=== PATIENT | male | born 1965 | race Caucasian/White ===

== ENCOUNTER 2020-11-19 10:02 | Outpatient (CLI) | payer BC, SELFPAY ==
--- NOTE | ~2020-11-19 | XR_ITS ---
XR lumbar spine 2-3V DATE: 11/19/2020 10:22 INDICATION: Back pain TECHNIQUE: AP, lateral, coned lateral lumbosacral views COMPARISON: None FINDINGS: There is minimal levoscoliosis of the lumbar spine. Bridging osteophytes are noted at T12-L1 and L1-L2. There is moderate degenerative disc disease at th e lumbar interspaces and moderately severe degenerative disease at L5-S1. There is a transitional first sacral vertebra. No fracture or bone destruction. The lumbar pedicles are intact. The sacroiliac joints are normal. IMPRESSION: Extensive degenerative changes of lower thoracic and lumbar spine Transitional lumbosacral vertebra Reviewed, dictated and finalized at location A. HER INSTRUMENTAL
--- NOTE | ~2020-11-19 | XR_ITS ---
XR hip RT min 2V DATE: 11/19/2020 10:22 INDICATION: Right hip pain for 5+ years TECHNIQUE: AP and lateral and crosstable lateral views COMPARISON: None FINDINGS: There is very severe right hip osteoarthritis with severe joint space narrowing and very pr ominent hypertrophic degenerative spurring. There is closely apposing hypertrophic spurring of the ac etabulum and femoral head. There is lateral subluxation at the hip joint. There is mild flattening deformity and patchy sclerotic and lucent changes of the right femoral head consistent with probable avascular necrosis. No fracture or dislocation or bone destruction is noted otherwise. Normal alignment at the pubic symphysis and right sacroiliac joint. 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
== END 2020-11-19 10:03 | disposition home or self-care (01) ==
LOC: ANHIMG 10:08
PROVIDERS: PCP Internal Medicine; Visit Provider Clinical Nurse Specialist
DX: M25.559 Pain in unspecified hip (principal); M51.34 Other intervertebral disc degeneration, thoracic region; M51.36 Other intervertebral disc degeneration, lumbar region
CPT/HCPCS: 72100; 73502

== ENCOUNTER 2020-12-22 07:42 | Outpatient (CLI) | payer BC, SELFPAY ==
--- NOTE | 2020-12-22 08:38 | ECG_ITS ---
Measurements Intervals [place] Rate: 67 P: 52 MS: 188 QRS: 34 QRSD: 90 T: 35 QT: 380 QTc: 402 Interpretive Statements SINUS RHYTHM POSSIBLE LEFT ATRIAL ENLARGEMENT BORDERLINE R WAVE PROGRESSION, ANTERIOR LEADS BASELINE ARTIFACT- II, III, AVF BORDERLINE ECG Electronically Signed On 12-28-2020 19:54:11 CDT by Jose Maria D.O.
[2020-12-22 09:32] LABS: Albumin Level 4.8 g/dL (3.5-5.1); Urine Cotinine NEGATIVE
[2020-12-22 09:36] LABS: Hemoglobin A1C 4.6 % (<5.7)
== END 2020-12-22 07:43 | disposition home or self-care (01) ==
LOC: ANHSURGERY 07:45
PROVIDERS: PCP Internal Medicine; Visit Provider Orthopaedic Surgery
DX: Z01.818 Encounter for other preprocedural examination (principal); M16.11 Unilateral primary osteoarthritis, right hip; R00.0 Tachycardia, unspecified; I48.92 Unspecified atrial flutter
CPT/HCPCS: 80307; 82040; 83036; 86850; 86900; 86901; 87081; 93005

== ENCOUNTER 2020-12-30 09:06 | Outpatient (CLI) | payer BC, SELFPAY ==
--- NOTE | 2020-12-28 | ECG_ITS ---
Measurements Intervals [place] Rate: 84 P: 43 RI: 128 QRS: 53 QRSD: 96 T: 49 QT: 361 QTc: 429 Interpretive Statements SINUS RHYTHM BASELINE WANDER- V2-V3, V6 NORMAL ECG Electronically Signed On 12-31-2020 11:20:01 CDT by Jose Maria D.O.
--- NOTE | ~2020-12-30 | NM_ITS ---
EXAMINATION: NM kulwinder stress w perfusion DATE: 12/30/2020 13:12 INDICATION: Dyspnea on exertion. TECHNIQUE: Rest images were obtained following intravenous administration of 9.4 mCi Tc99m tetrofosmi n (Myoview). The patient was infused intravenously with Lexiscan (regadenoson). Then, 28.3 mCi Tc99m tetrofosmin (Myoview) was administered intravenously, and stress images were obtained. Data was recon structed into short axis and horizontal and vertical long axis SPECT images. Gated SPECT images were also obtained. COMPARISON: None. FINDINGS: There is no definite reversible or fixed perfusion abnormality to suggest ischemia or infar ction. There is no segmental wall motion abnormality. Left ventricular ejection fraction measures 7 0%. IMPRESSION: 1. No definite ischemia or infarct. 2. Normal left ventricular ejection fraction measuring 70%. Reviewed, dictated and finalized at location A.
--- NOTE | 2020-12-30 09:37 | EST_ITS ---
Patient Info Name: Satish Marcelo Age: 55 years : 1965 Gender: Male Ht: 77 in Wt: 280 lbs BSA: 2.66 m2 Exam Date: 12/30/2020 11:32 AM Exam Location: [facility] Stress Patient Status: Outpatient Admit Date: 12/30/2020 Staff Ordering Physician: Jose Maria DO Attending Provider: Jose aMria DO Exercise Technologist: Sheyla Nelson CT Exercise Physician: Jose Maria DO Exam Type: CA stress kulwinder w NM Study Info Indications Z01.818 - Encounter for other preprocedural examination A regadenoson stress test was performed. Summary 1. 1. Negative lexiscan stress test for ischemic ST changes by ECG criteria. 2. 2. Baseline hypertension. 3. 3. Nuclear scan to follow and will be reported separately. Please correlate with it. 4. 4. Patient informed of the above results. Protocol: Lexiscan Stress ECG Details Stage: REST Duration (min): 21 min : 45 sec HR (bpm): 82 SBP (mmHg): 162 DBP (mmHg): 86 Stage: STAGE 1 Duration (min): 0 min : 38 sec HR (bpm): 81 SBP (mmHg): 162 DBP (mmHg): 86 Stage: STAGE 1 Duration (min): 1 min : 0 sec HR (bpm): 93 SBP (mmHg): 169 DBP (mmHg): 102 Stage: RECOVERY Duration (min): 1 min : 0 sec HR (bpm): 92 SBP (mmHg): 169 DBP (mmHg): 102 Stage: RECOVERY Duration (min): 2 min : 0 sec HR (bpm): 88 SBP (mmHg): 169 DBP (mmHg): 102 Stage: RECOVERY Duration (min): 2 min : 29 sec HR (bpm): 89 SBP (mmHg): 176 DBP (mmHg): 98 Rest HR: 82 bpm Peak HR: 98 bpm Rest Sys BP: 162 mmHg Peak Sys BP: 176 mmHg Max Pred HR: 163 bpm % Max Pred HR: 60 % Target HR: 139 bpm Max RPP: 17,248 bpm*mmHg Termination Reason: Completed protocol Cardiac Symptoms: Headache Total Time: 1 min : 0 sec Rest [place] BP: 86 mmHg Peak [place] BP: 98 mmHg Total Dose: 0.4 mg Resting ECG Sinus rhythm. Stress ECG No ST changes. Arrhythmias None. Report Signatures
--- NOTE | 2020-12-30 09:37 | ECHO_ITS ---
Patient Info Name: Satish Marcelo Age: 55 years : 1965 Gender: Male Ht: 77 in Wt: 280 lbs BSA: 2.66 m2 HR: 48 bpm BP: 162 / 90 mmHg Heart Rhythm: Sinus Rhythm Exam Date: 12/30/2020 9:41 AM Exam Location: [facility] Pulmonary Patient Status: Outpatient Admit Date: 12/30/2020 Staff Ordering Physician: Jose Maria DO Parts Remover: Marylu Gerard RDCS Attending Provider: Jose Maria DO Referring Physician: Crow MCCRARY; Exam Type: CA echo dop color flow w con Study Info Indications R06.00 - Dyspnea, unspecified Complete two-dimensional, color flow and Doppler transthoracic echocardiogram is performed. Summary 1. Complete two-dimensional, color flow and Doppler transthoracic echocardiogram is performed. 2. Left ventricular chamber dimension is normal. 3. Left ventricular systolic function is normal, estimated at 60-65%. 4. The left ventricular diastolic function is grade I diastolic dysfunction. 5. E/e' 8 is minimally elevated. 6. Left atrial chamber dimension is mildly enlarged. Left Ventricle E/e' 8 is minimally elevated. Left ventricular chamber dimension is normal. Left ventricular systolic function is normal, estimated at 60-65%. The left ventricular diastolic function is grade I diastolic dysfunction. Right Ventricle Right ventricular chamber dimension is normal. Right ventricular systolic function is normal. Left Atria Left atrial chamber dimension is mildly enlarged. Right Atria Right atrial chamber dimension is normal. Aortic Valve The aortic valve is trileaflet. There is no aortic valve stenosis. There is no aortic valve regurgitation. Pulmonic Valve There is no pulmonic regurgitation. Mitral Valve There is no mitral valve stenosis. There is no mitral valve regurgitation. Tricuspid Valve There is no tricuspid valve regurgitation. Pericardium/Pleural There is no pericardial effusion. Inferior Vena Cava Normal inferior vena cava with >50% collapse upon inspiration consistent with normal right atrial pressure, 5 mmHg. Aorta The aortic root size at the sinus of Valsalva is normal. Left Ventricular Outflow Tract Name Value Normal LVOT 2D LVOT Diameter 2.47 cm LVOT Doppler LVOT Peak Gradient 4 mmHg LVOT Mean Gradient 2 mmHg LVOT VTI 21.57 cm LVOT VTI/AV VTI Ratio 0.81 LVOT Stroke Volume 103.12 ml LVOT CO 8.09 l/min LVOT CI 3.04 L/min/m2 Pulmonic Valve Name Value Normal RVOT Doppler RVOT Peak Gradient 3 mmHg PV Doppler PV Peak Gradient 4 mmHg Mitral Valve
== END 2020-12-30 09:07 | disposition home or self-care (01) ==
PROVIDERS: PCP Internal Medicine; Visit Provider Internal Medicine Cardiovascular Disease
DX: Z01.810 Encounter for preprocedural cardiovascular examination (principal); R06.00 Dyspnea, unspecified; I48.91 Unspecified atrial fibrillation; I48.92 Unspecified atrial flutter
CPT/HCPCS: 78452; 93017; 93306; A9502

== ENCOUNTER → 2021-01-01 00:50 | Outpatient (CLI) | payer BC, SELFPAY ==
[2021-01-01 19:49] LABS: SARS-CoV-2 RNA PCR Negative
== END ==
PROVIDERS: PCP Internal Medicine; Visit Provider Orthopaedic Surgery
DX: Z01.812 Encounter for preprocedural laboratory examination (principal); Z20.822 Contact with and (suspected) exposure to COVID-19
CPT/HCPCS: C9803; U0003; U0005

== ENCOUNTER 2021-01-04 01:18 | Day surgery (SDC) | payer BC, SELFPAY ==
[2020-12-22 08:02] VITALS: BMI 33.5
[2021-01-04] VITALS (13 sets, daily range): BP systolic 130–157; BP diastolic 67–96; PULSE 85–103; RESP 12–18; TEMP 36–36.6; O2SAT 93–100
--- NOTE | ~2021-01-04 | XR_ITS ---
EXAMINATION: XR surgery orthopedic EXAM DATE: 01/04/2021 12:08 INDICATION: Anterior approach right hip arthroplasty. TECHNIQUE: Fluoroscopy used during right hip arthroplasty performed by Dr. Darwin Clemons MD. Rad iologist was not present for the imaging or procedure. Total fluoroscopic time of 0.3 minutes. A tot al of 1 images obtained for the exam. The DAP for this procedure was 0.14 mGym2. FINDINGS: Frontal image demonstrates right hip arthroplasty hardware in expected position. Correlat e with procedure note. IMPRESSION: Fluoroscopy used during right hip arthroplasty. Reviewed, dictated and finalized at location A.
--- NOTE | ~2021-01-04 | XR_ITS ---
EXAMINATION: XR hip RT min 2V DATE: 01/04/2021 12:43 INDICATION: Total right hip arthroplasty. Postop. TECHNIQUE: 2 views of right hip were obtained. COMPARISON: Right hip radiographs 12/09/2020 FINDINGS: There is a total right hip arthroplasty in near-anatomic alignment. No fracture. There is g as in the soft tissues, consistent with recent surgery. IMPRESSION: 1. Total right hip arthroplasty in near-anatomic alignment. Reviewed, dictated and finalized at location A.
[2021-01-04] MEDS: LACTATED RINGERS 1,000 ML 30 ML IV CONT ×2 (06:45→12:35)
[2021-01-04] MEDS: TRANEXAMIC ACID 1,000MG/ISO100 1,000 MG/100 ML BAG 200 MG IVPB (06:46)
[2021-01-04] MEDS: ACETAMINOPHEN 500 MG TABLET 1000 MG PO ×3 (06:46→23:49)
--- NOTE | 2021-01-04 06:50 | WPDANESEPPF ---
Anes - Initial Pre Proc Eval Procedure: Operation Date: 01/04/21 07:30 Proposed Procedures p Right Total Hip Arthroplasty, Anterior Approach - Darwin Clemons MD Date/Time: 01/04/21 06:50 Surgeon: Darwin Clemons MD Pre Op Diagnosis: OA, Right Hip Patient Data Age: 55 Gender: M Height: 6 ft 5 in Weight: 128.1 kg Allergies Allergy/AdvReac Type Severity Reaction Status Date / Time No Known Allergies Allergy Verified 12/23/20 10:38 Home Medications Medication Instructions Recorded Confirmed Type atorvastatin 10 mg tablet 10 mg PO QHS #90 tablet 12/09/20 12/24/20 Rx fluoxetine 40 mg capsule 40 mg PO BID 12/09/20 12/24/20 History lorazepam 1 mg tablet 1 mg PO DAILY PRN tablet 12/09/20 12/24/20 History geriatric multivitamin-min 1 tablet PO DAILY 12/22/20 12/24/20 History [Multiple Vitamins 55 Plus] zuqowssszpw-B0-Lvkoyxqks serr 1 tablet PO DAILY 12/22/20 12/24/20 History [Glucosamine Daily Complex] losartan 50 mg PO QAM 12/22/20 12/24/20 History omega-3 fatty acids [Fish Oil] 2,400 mg PO DAILY 12/22/20 12/24/20 History aspirin 325 mg tablet,delayed 325 mg PO DAILY 12/24/20 12/24/20 History release rivaroxaban 10 mg tablet 10 mg PO DAILY #14 tablet 12/24/20 Rx Patient hx anesthesia problems: none Family hx anesthesia problems: none PMFSH Past Medical History Medical History (Updated 01/04/21 @ 06:50 by Chase Baez MD) Abnormal EKG Anxiety HTN (hypertension) Obesity Surgical History Surgical History History of colonoscopy Family History Family History Sibling Asthma Depression Anxiety Thyroid condition Father Heart disease Afib Social History Social History Smoking status: Never smoker Alcohol intake: current Drinks per week: 10 Substance use: never Living arrangements: alone Gender identity (if verbalized by the patient): Male Spiritual care concerns: No Anes - Eval Final PreProcedure Day of Procedure 01/04/21 06:50 Patient weight: obese Heart: regular rate and rhythm Lungs: clear to auscultation Airway: Mallampati scale class II Neurological: alert and oriented Last oral intake: >/= 8 hours ASA classification: III Emergent: no Anesthetic plan: proceed Anesthesia type and monitoring: general ETT and standard monitoring Informed Consent: The patient's anesthetic plan and its attendant risks and benefits were discussed with the patient/family/POA. Questions were solicited and answers provided to the satisfaction of the patient/family/POA.
--- NOTE | 2021-01-04 07:10 | WPDHPUPDATE1 ---
History and Physical Update Update Date/Time: 01/04/21 07:10 History and Physical has been reviewed, including an updated exam of the patient. There are NO changes in the patient's condition. Risks, benefits, and alternatives have been discussed and questions answered. Patient agrees to proceed with procedure.
[2021-01-04] MEDS: ceFAZolin 3 GM/D5W 100 ML 100 ML IVPB (07:55)
[2021-01-04] MEDS: BUPIVACAINE/EPINEPHRINE 0.25% 50 ML VIAL INFILTRATE (08:55)
[2021-01-04] MEDS: TRANEXAMIC ACID 1,000 MG/10 ML AMPUL 1000 MG TOPICAL (08:57)
[2021-01-04] MEDS: ceFAZolin SODIUM 1 GM VIAL IV PUSH (12:06)
--- NOTE | 2021-01-04 12:28 | PM.PROC ---
Procedure Note - Detailed Date of procedure: 01/04/21 Pre-op diagnosis: OA, Right Hip Post-op diagnosis: same Procedure performed: Right total hip replacement -anterior approach Description of procedure: The patient was identified, proper side identified, and then taken to the operating room. After a spinal anesthetic was administered, he was then transferred over to the [place] table positioning supine in the usual manner for an anterior hip procedure. Positioning was assessed fluoroscopically after which the right hip and thigh was prepped and draped in the usual sterile fashion. 10 cc of the arthroplasty solution was injected into the subcutaneous tissue over the TFL muscle belly. Longitudinal incision was made over the muscle belly. Subcutaneous tissue was sharply dissected down to the TFL fascia which was incised in line with the fibers the TFL. The TFL was retracted laterally and the rectus femoris medially. The rectus fascia was divided. The branches of the anterior femoral circumflex artery were identified and cauterized allowing for access to the hip capsule. Pericapsular fatty tissue was removed. The capsule was divided in an inverted T-fashion. The neck cut was made one fingerbreadth above the level of the lesser trochanter. Head fragment was removed and the acetabulum cleared of debris. Acetabulum was sequentially reamed under fluoroscopic visualization up to 65 mm. A 66 G7 was inserted under fluoroscopic visualization in approximately 40? of abduction and 15? of anteversion following the patient's anatomy. It was further secured with a single screw and then the liner for the 36 head was placed. The femur was then delivered up into the wound with the appropriate releases. The proximal femur was prepared for the 17 stem and a trial reduction was undertaken. Overall alignment was assessed fluoroscopically in the AP and lateral views noting it to be satisfactory. Trial components were removed. The wound was irrigated with pulsatile lavage. The real size 17 micro plasty stem was then seated. This construct with a size 36, minus three head gave excellent confucianism of leg lengths and stability so the real size 36-three ceramic head was attached to the neck of the femoral component after it had been cleaned and dried. Hip was again reduced and stability assessed, and it was noted to be stable. After final lavage of the wound, the periarticular tissues were injected with an additional 50 cc of the arthroplasty solution. 1 g of tranexamic acid was left in the wound. The capsule was reapproximated with #2 Vicryl suture, the TFL fascia with 0 looped PDS suture, the subcu with two of strata fix in the deeper layers and two of strata fix subcuticular stitch. Tissue adhesive was used for the skin. Sterile dressing was applied. He tolerated the procedure well. He was transferred back to a bed and taken to recovery area in stable condition. There were no known intraoperative complications. Estimated blood loss was 900 cc. 450 cc of Cell Saver was returned. He received perioperative antibiotics. Anesthesia: GETA Surgeon: Darwin Clemons MD Cut Lace Machine Operator: Leandra Massey Estimated blood loss (mL): 900 (Four hundred fifty mL cell Saver return) Drains: No Pathology: none sent Complications: No immediate complications Condition: stable Disposition: PACU
[2021-01-04] MEDS: fentaNYL CITRATE INJ (*CRX) 100 MCG/2 ML VIAL 25 MCG IV PUSH ×8 (12:49→13:11)
--- NOTE | 2021-01-04 12:55 | SUR.PHASEI ---
1240 2 VIEWS OF XRAY TAKEN OF RT HIP.
[2021-01-04] MEDS: HYDROmorphone HCL INJ (*CRX) 1 MG/ML SYR 0.5 MG IV PUSH ×2 (13:13→13:25)
--- NOTE | 2021-01-04 14:15 | ADMGEN ---
This patient, Satish Marcelo, was admitted to Medical Room 248-. Patient/family oriented to hospital policies and general routines including ID bracelet, bed and alarms, visiting hours, pain management, procedures, bathroom and other care routines, personal items, smoking policy, room service/diet, and visiting hours. Information on how to activate the Rapid Response Team has been discussed. Patient/Family are encouraged to report perceived risks to care and to ask questions if they do not understand what they are told or what they should do.
[2021-01-04] MEDS: SODIUM CHLORIDE 0.9% IV 1,000 ML 125 ML IV CONT (14:39)
[2021-01-04] MEDS: oxyCODONE HCL (*CRX) 5 MG TAB IR PO ×3 (14:40→22:15)
[2021-01-04 14:54] LABS: Hematocrit 39.9 % (42.0-52.0); Hemoglobin 13.6 g/dL (14.0-18.0)
[2021-01-04] MEDS: ceFAZolin 2 GM/D5W 50 ML 2 GM/50 ML BAG IVPB ×2 (15:34→23:49)
[2021-01-04] MEDS: KETOROLAC 15 MG/ML VIAL (*BKC) IV PUSH ×2 (15:39→22:14)
[2021-01-04] MEDS: DOCUSATE SODIUM 100 MG CAPSULE PO (16:51)
[2021-01-04] MEDS: FLUoxetine HCL 20 MG CAPSULE 40 MG PO (16:51)
[2021-01-04] MEDS: ONDANSETRON INJ 4 MG/2 ML VIAL IV PUSH (18:35)
[2021-01-04] MEDS: ATORVASTATIN 10 MG TABLET PO (20:31)
[2021-01-04] MEDS: FAMOTIDINE 20 MG TABLET PO (20:31)
[2021-01-04] MEDS: LORazepam (*CRX) 1 MG TABLET PO (23:49)
[2021-01-05] VITALS: BP 152/73; PULSE 89; RESP 16; TEMP 36.3; O2SAT 97
[2021-01-05] MEDS: KETOROLAC 15 MG/ML VIAL (*BKC) IV PUSH (03:14)
[2021-01-05] MEDS: oxyCODONE HCL (*CRX) 5 MG TAB IR PO ×3 (03:14→10:35)
[2021-01-05 04:00] VITALS: BP 130/71; PULSE 87; RESP 16; TEMP 36.9; O2SAT 99
[2021-01-05 05:43] LABS: Basophils Percent Auto 0.1 % (0.2-1.2); Hemoglobin 11.3 g/dL (14.0-18.0); Immature Granulocyte Absolute 0.07 K/mm3 (0.00-0.031); Immature Granulocyte Percent A 0.4 % (0-0.5); Lymphocytes Absolute Auto 0.96 K/mm3 (0.9-3.2); Lymphocytes Percent Auto 5.7 % (18.3-44.2); Mean Corpuscular HGB Conc 34.2 g/dl (32-36); Mean Corpuscular Hemoglobin 30.8 pg (26-34); Mean Corpuscular Volume 89.9 fl (80-100); Mean Platelet Volume 9.8 fl (7.4-10.4); Monocytes Absolute Auto 1.6 K/mm3 (0.1-0.6); Monocytes Percent Auto 9.1 % (2.6-8.5); Neutrophils Absolute Auto 14.4 K/mm3 (1.3-6.7); Neutrophils Percent Auto 84.7 % (45.5-73.1); Platelet Count Result 208 k/mm3 (150-375); Red Blood Count 3.67 M/mm3 (4.6-6.20); Red Cell Distribution Width 12.4 % (11.5-14.5)
[2021-01-05 05:53] LABS: Anion Gap 3 mmol/L (8-16); Blood Urea Nitrogen 14 mg/dL (9-20); Calcium 7.8 mg/dL (8.4-10.2); Carbon Dioxide 29 mmol/L (22-30); Chloride 101 mmol/L (98-107); Estimated CRCL calculation 148 ml/min; Estimated Glomerular Filt Rate > 60; Glucose 111 mg/dL (75-110); Potassium 4.2 mmol/L (3.4-5.0); Sodium 133 mmol/L (137-145)
[2021-01-05] MEDS: ACETAMINOPHEN 500 MG TABLET 1000 MG PO (06:13)
--- NOTE | 2021-01-05 07:31 | PM.DS ---
DS: Admitting Diagnosis Admitting Diagnosis Admitting Diagnosis: Right hip osteoarthritis DS: Discharge Diagnosis Discharge Diagnosis (1) Arthritis of right hip: Code(s): M16.11 - Unilateral primary osteoarthritis, right hip Status: Chronic Assessment and Plan: 55-year-old male postop day one right hip replacement done through an anterior approach. He will be discharged home today. DS: Summary Hospital Course Reason for hospitalization: Observation following outpatient procedure. Hospital Course: Following the patient's right hip surgery, he was admitted to the floor for observation. Therapy was initiated. He did well and is being discharged home on postop day one. Status at Discharge Functional status at discharge: uses cane/walker Time Spent with Patient Time attestation: Total time spent providing and/or coordinating discharge services: Time spent: Less than 30 minutes Exam Const: General: cooperative, no acute distress and alert Nutritional Appearance: other Orientation/consciousness: patient oriented x3 Limitations: no limitations HENMT: Head: normal to inspection Ears: hearing grossly normal bilaterally Face and sinus: face symmetric Mouth: Yes moist mucous membranes Teeth and gingiva: fair dentition Eyes: Alignment and Position: alignment normal and position normal Sclera: sclerae normal Neck: Neck: normal visual inspection and nontender Chest: Chest palpation & inspection: normal inspection of the chest Resp: Effort & Inspection: normal respiratory effort and able to speak in complete sentences GI: Inspection: other (Nondistended) Skin: General skin exam: normal color Rashes: no rashes Neuro: General: patient oriented x3 Cognition (Neuro): normal cognition Speech: normal speech Sensory Exam: normal sensation Extrem: General: normal to inspection and other Other: Exam of the right hip and thigh does show some swelling with some bruising around the incision but no erythema or drainage. Calves are negative. Femoral and sciatic nerve function grossly intact to the right lower extremity. Clinically, leg lengths are just about equal with perhaps the right being less than a half cm shorter than the left. Psych: Appearance: grossly normal Mental Status: mental status grossly normal Radiology Reports: Comments: EXAMINATION: XR hip RT min 2V DATE: 01/04/2021 12:43 INDICATION: Total right hip arthroplasty. Postop. TECHNIQUE: 2 views of right hip were obtained. COMPARISON: Right hip radiographs 12/09/2020 FINDINGS: There is a total right hip arthroplasty in near-anatomic alignment. No fracture. There is gas in the soft tissues, consistent with recent surgery. IMPRESSION: 1. Total right hip arthroplasty in near-anatomic alignment. DS: Data Data Completed and Pending Labs on day of discharge: Labs from last 24 hours 01/05/21 01/05/21 01/04/21 05:26 05:26 14:35 WBC 17.0 H RBC 3.67 L Hgb 11.3 L 13.6 L Hct 33.0 L 39.9 L MCV 89.9 MCH 30.8 MCHC 34.2 RDW 12.4 Plt Count 208 MPV 9.8 Immature Gran % (Auto) 0.4 Neut % (Auto) 84.7 H Lymph % (Auto) 5.7 L [place] % (Auto) 9.1 H Eos % (Auto) 0.0 Baso % (Auto) 0.1 L Lymph # (Auto) 0.96 [place] # (Auto) 1.6 H Eos # (Auto) 0.0 Baso # (Auto) 0.0 Abs Immat Gran (auto) 0.07 H Absolute Neuts (auto) 14.4 H Absolute Nucleated RBC 0.0 Nucleated RBC % 0.0 Sodium 133 L Potassium 4.2 Chloride 101 Carbon Dioxide 29 Anion Gap 3 L BUN 14 Creatinine 0.70 Estim Creat Clear Calc 148 Estimated GFR > 60 Glucose 111 H Calcium 7.8 L Discharge Plan Discharge Patient Disposition: Home, Self-Care Discharge Instructions: 3 times daily for 20 minutes each time, reclining in bed with ice packs over the incision and a pillow underneath the calf of the affected leg, not under the knee. Your wound is glued so it is okay to get into the show
[2021-01-05] MEDS: MULTIVITAMINS /C LUTEIN (CENTRUM SILVER) TABLET *BKC 1 TAB PO (08:14)
[2021-01-05] MEDS: FAMOTIDINE 20 MG TABLET PO (08:14)
[2021-01-05] MEDS: LOSARTAN POTASSIUM 50 MG TABLET PO (08:14)
[2021-01-05] MEDS: RIVAROXABAN 10 MG TABLET PO (08:14)
[2021-01-05] MEDS: DOCUSATE SODIUM 100 MG CAPSULE PO (08:14)
[2021-01-05] MEDS: FLUoxetine HCL 20 MG CAPSULE 40 MG PO (08:14)
[2021-01-05] MEDS: ceFAZolin 2 GM/D5W 50 ML 2 GM/50 ML BAG IVPB (08:14)
[2021-01-05] MEDS: LORazepam (*CRX) 1 MG TABLET PO (08:20)
--- NOTE | 2021-01-05 08:38 | WPDANESPN ---
Anes - Prog Note Post-Op Date/Time: 01/05/21 08:38 Cardiovascular status: normal Respiratory status: normal Airway patency: baseline Mental status: baseline Post-Op hydration status: normal Vital Signs: Last Vital Signs Temp 36.9 C 01/05/21 04:00 Pulse 87 01/05/21 04:00 Resp 16 01/05/21 04:00 BP 130/71 01/05/21 04:00 Pulse Ox 99 01/05/21 04:00 Pain Score (VAS): 11/04 I/O: Intake & Output 01/04/21 01/05/21 01/05/21 23:59 07:59 15:59 Intake Total 2090 450 Output Total 325 2400 Balance 1765 -1950 Laboratory Tests 01/05/21 05:26 01/05/21 05:26 01/04/21 01/05/21 01/05/21 14:35 05:26 05:26 WBC 17.0 H RBC 3.67 L Hgb 13.6 L 11.3 L Hct 39.9 L 33.0 L MCV 89.9 MCH 30.8 MCHC 34.2 RDW 12.4 Plt Count 208 MPV 9.8 Immature Gran % (Auto) 0.4 Neut % (Auto) 84.7 H Lymph % (Auto) 5.7 L [place] % (Auto) 9.1 H Eos % (Auto) 0.0 Baso % (Auto) 0.1 L Lymph # (Auto) 0.96 [place] # (Auto) 1.6 H Eos # (Auto) 0.0 Baso # (Auto) 0.0 Abs Immat Gran (auto) 0.07 H Absolute Neuts (auto) 14.4 H Absolute Nucleated RBC 0.0 Nucleated RBC % 0.0 Sodium 133 L Potassium 4.2 Chloride 101 Carbon Dioxide 29 Anion Gap 3 L BUN 14 Creatinine 0.70 Estim Creat Clear Calc 148 Estimated GFR > 60 Glucose 111 H Calcium 7.8 L Post-procedural complaints: none Patient Feedback: Patient satisfied with anesthetic care.
== END 2021-01-05 11:08 | disposition home or self-care (01) ==
LOC: ANHSURGERY 14:02 → ANH2MED 14:11
PROVIDERS: PCP Internal Medicine; Visit Provider Orthopaedic Surgery
PROC: (CPT 27130; principal; 2021-01-04 07:30)
DX: M16.11 Unilateral primary osteoarthritis, right hip (principal); I10 Essential (primary) hypertension; F41.9 Anxiety disorder, unspecified; E66.9 Obesity, unspecified; Z68.33 Body mass index [BMI] 33.0-33.9, adult; Z79.01 Long term (current) use of anticoagulants; Z79.82 Long term (current) use of aspirin
CPT/HCPCS: 27130; 36415; 73502; 80048; 85014; 85018; 85025; 97110; 97116; 97161; 97165; 97530; 97535; A9270; C1776; J0330; J0690; J1100; J1170; J1885; J2250; J2405; J2704; J2710; J3010; J7030; J7120

== ENCOUNTER 2021-04-29 08:30 | Outpatient (RCR) | payer BC, SELFPAY ==
--- NOTE | 2021-03-17 14:00 | PTOPEVAL ---
Thank you for referring Satish Marcelo to [facility].? The patient is scheduled to be seen for therapy? 2 x/week for 6 weeks. Please review, sign, date and return this plan of care KANDICE. I agree with and certify that the following plan of care is medically necessary. Referring Physician Date Attending Provider: Darwin Clemons MD Diagnosis OA right hip with s/p ALEX Onset 01/05/21 Additional Evaluation Detail He is retired. He did [employer] work. current recreational activities: walking, golf Subjective Information Reports he stopped with the Query Text:As Reported By Patient/ cane last week. He is not Family consistently following the post surgery hip precautions. He is performing most activities with minimal difficulty and soreness. He c/ o right LE being smaller due to longer term lack of use. He c/o stiffness with prolonged sitting. He does not wear socks or tie his shoes. He has not reached his right foot for years. he c/o soreness and tightness with prolonged sitting task. Pain Assessment Self Report Pain Assessment Right Hip(s) Reported Pain Level 2 Pain Description Soreness,Tightness Pain Frequency Intermittent Lowest Pain Intensity 0 Greatest Pain Intensity 2 Pain Aggravating Factors ADL's,Bending,Prolonged Position Pain Behaviors None Lower Extremity Range of Motion Hip Range of Motion Right Hip Flexion Range of Motion - Active 90 Hip Flexion Range of Motion - Passive 98 Hip Extension Range of Motion - Active -15 Hip Abduction Range of Motion - Active 15 Hip Range of Motion Limitations Pain,Soft Tissue Restriction Knee Range of Motion Right Knee Flexion Range of Motion - Active 118 Knee Extension Range of Motion - Active -15 Query Text: Lower Extremity Muscle Strength Testing Hip Strength Left Hip Flexion Strength 5 Normal Right Hip Flexion Strength 5 Normal Hip Extension Strength 3- Fair - Hip Abduction Strength 3- Fair - Knee Strength Bilateral Knee Flexion Strength 4+ Good + Knee Extension Strength 5 Normal Muscle Length Testing Muscle Length Testing Right Straight Leg Raise Muscle Length ( 50 degrees) Left Straight Leg Raise M
--- NOTE | 2021-04-13 08:26 | PTOPEVAL ---
Thank you for referring Satish Marcelo to [facility].? Satish has attended 9 therapy visits to address impairments of right LE related to s/p THR. He demonstrates progress with joint motion, strength and performance with functional task. He is progressing towards his therapy goals. The patient is scheduled to be seen for therapy? 2 x/week for 3 weeks. Please review, sign, date and return this plan of care KANDICE. I agree with and certify that the following plan of care is medically necessary. Referring Physician Date Attending Provider: Darwin Clemons MD Physical Therapy Progress Note Diagnosis OA right hip with s/p ALEX Onset 01/05/21 Additional Evaluation Detail He is retired. He did [employer] work. current recreational activities: walking, golf He is not consistently following the post surgery hip precautions. Subjective Information He does feel like his leg is Query Text:As Reported By Patient/ moving better, but is still Family tight on the front of hip/quad region. He feels the muscles are still weaker. 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 He cont to c/o stiffness with prolonged sitting, but improved. HE is able to don socks with use of a sock aid. He is able to reach further towards his fee. Pain Assessment Self Report Pain Assessment Right Hip(s) Reported Pain Level 2 Pain Description Soreness,Tightness Lowest Pain Intensity 1 Greatest Pain Intensity 2 Lower Extremity Range of Motion General Lower Extremity Range of Motion Gross Lower Extremity Range of Motion left hip ext: -3 dg from Comments neutral left hip abduction: 15 dg Hip Range of Motion Right Hip Flexion Range of Motion - Active 93 Hip Flexion Range of Motion - Passive 98 Hip Extension Range of Motion - Active -10 Hip Abduction Range of Motion - Active 15 Hip Range of Motion Limitations Pain,Soft Tissue Restriction Knee Range of Motion Right Knee Flexion Range of Motion - Active 118 Knee Extension Range of Motion - Active -12 Query Text: Lower Extremity Muscle Strength Testing Hip Strength Left Hip Flexion Strength 5 Normal Hip Extension Strength 5 Normal Hip Abduction Strength 4- Good - Right Hip Flexion Strength 5 Normal Hip Extens
--- NOTE | 2021-04-26 09:17 | PCPTNOTE ---
Patient called & cancelled scheduled appointment this date due to dentist appointment.
--- NOTE | 2021-04-29 10:58 | PCPTNOTE ---
Admitting Provider: Attending Provider: Darwin Clemons MD Patient:Satish Marcelo Date of :1965 Discharge Note Patient has attended 12 therapy visits from 03/17/21 to 04/29/21 to address LE impairments related to THR. As result of skilled therapy services he demonstrates -5 dg of right hip ext, improved right LE strength, improved walking speed and gait deviations. He denies any pain with daily activities and demonstrates consistent performance of HEP. He has partially met to met his therapy goals at this time. Will plan to DC skilled therapy services at this time with recommendations of Satish continuing with home program. Thank you for referring this patient to [facility]. Please review, sign, date and return this discharge summary KANDICE. I have been updated about the patient's current status and I agree with discharge from the above service at this time. Referring Physician Date
== END 2021-06-02 09:56 | disposition home or self-care (01) ==
LOC: ANHPT 08:30
PROVIDERS: PCP Internal Medicine; Visit Provider Orthopaedic Surgery
DX: Z47.1 Aftercare following joint replacement surgery (principal); Z96.641 Presence of right artificial hip joint
CPT/HCPCS: 97110; 97140; 97161